=== PATIENT | male | born 1935 | race Caucasian/White ===

== ENCOUNTER → 2020-02-08 14:06 | Outpatient (BNVA) | payer MEDICARE, SELFPAY | PROVIDERS: PCP Internal Medicine; Visit Provider Urology | DX: R35.1 Nocturia (principal); N40.1 Benign prostatic hyperplasia with lower urinary tract symptoms | CPT/HCPCS: 51798; 99212 ==

== ENCOUNTER 2020-02-16 06:13 | Day surgery (SDC) | payer MEDICARE, SELFPAY ==
[2020-02-16 06:28] VITALS: BP 149/86; PULSE 84; RESP 16; TEMP 36.2; O2SAT 95; BMI 28.7
[2020-02-16] MEDS: Lactated Ringers 1,000 ML 50 ML IVCONT (06:30)
[2020-02-16] MEDS: levoFLOXacin/D5W 500 MG/100 ML PIGGYBACK 100 MG IV (06:45)
[2020-02-16] MEDS: Gentamicin Sulfate/NaCl 80 MG/100 ML PIGGYBACK 100 MG IV (07:06)
--- NOTE | 2020-02-16 07:07 | MHC.SHP ---
Pre-Procedural Eval Section A The patient is an INPATIENT: No Changes since office visit: No Cold of Flu in the past 2 weeks, No New Medical Problems, No Changes in Medication and No Patient answered all questions The History & Physical has been completed within 30 days and I have reviewed it.: Yes Section B Chief Complaint: benign prostatic hyperplasia Allergies: Allergies Allergy/AdvReac Type Severity Reaction Status Date / Time acetaminophen [Percocet] Allergy Unknown Itching Verified 02/16/20 07:00 oxycodone Allergy Unknown pruritus Verified 09/10/19 00:00 Plan Diagnosis/Plan: Unchanged I have reviewed the history and physical and performed a pertinent physical examination on my patient. No changes have occurred unless specified.
--- NOTE | 2020-02-16 07:30 | HO.ANESPROP2 ---
HPI - Anesthesia Eval Consult details Narrative: 84 M for cystoscopy [facility] Past Medical History Medical History Abdominal pain Arthritis BPH (benign prostatic hyperplasia) Depression High cholesterol HTN (hypertension) Hypothyroid Nocturia associated with benign prostatic hyperplasia Surgical History Surgical History H/O shoulder surgery History of prostate surgery Social History Social History Smoking Status: Never smoker Advance Directives: No Advance Directives Information Provided: Yes Advance Directives on File: No Recently lost weight without trying: No Meds Allergies Allergy/AdvReac Type Severity Reaction Status Date / Time acetaminophen [Percocet] Allergy Unknown Itching Verified 02/16/20 07:00 oxycodone Allergy Unknown pruritus Verified 09/10/19 00:00 Home Medications Medication Instructions Recorded Confirmed Type lisinopril 20 mg tablet 20 mg PO DAILY 02/05/20 02/16/20 History tamsulosin 0.4 mg capsule 0.4 mg PO BEDTIME 02/05/20 02/16/20 History terazosin 10 mg capsule 10 mg PO BEDTIME 02/05/20 02/16/20 History bisacodyl 5 mg tablet,delayed 10 mg PO BID 02/08/20 02/16/20 History release levothyroxine 50 mcg tablet 50 mcg PO QAM 02/08/20 02/16/20 History pravastatin 40 mg tablet 40 mg PO DAILY 02/08/20 02/16/20 History Exam Exam Date and Time: February 16, 2020 0730 Height,Weight and Vital Signs: Height 5 ft 10 in Weight 90.718 kg Last Vital Signs Temp 97.2 F 02/16/20 06:28 Pulse 84 02/16/20 06:28 Resp 16 02/16/20 06:28 BP 149/86 H 02/16/20 06:28 Pulse Ox 95 02/16/20 06:28 Airway Mallampati Class: II TM Dist: >3cm Denture: Upper and Lower Heart: PVCs Lungs: NL Other: AO Assessment and Plan Assessment Anesthesia Assessment: Anesthesia Plan Discussed Final Anesthetic Review NPO: Yes ASA Class: III Final Preanesthetic Review: No Changes in Pt Med Stat, Meds/Allgs Chart Reviewed, Consent Obtained/Reviewed and Anes Risks/Benef Reviewed Patient Risk: Intermediate Procedure Risk: Low Anesthetic Plan Anesthetic Plan: MAC: Disposition: Standard PACU
--- NOTE | 2020-02-16 07:46 | PM.OP ---
Brief Operative Note Date of Service: 02/16/20 Pre-op diagnosis: nocturia Post-op diagnosis: other (bph) Procedure: cystoscopy Surgeon: Aki Laboy III, MD Anesthesia: MAC Estimated blood loss (mL): 0 Pathology: none sent Condition: stable Disposition: same day
[2020-02-16 07:51] VITALS: BP 128/78; PULSE 84; RESP 16; TEMP 36.7; O2SAT 94
[2020-02-16 08:05] VITALS: BP 164/98; PULSE 75; RESP 18; TEMP 36.9; O2SAT 99
--- NOTE | 2020-02-16 08:18 | OP_ITS ---
SURGEON: Aki Laboy III, MD PREOPERATIVE DIAGNOSIS: POSTOPERATIVE DIAGNOSIS: BPH. PROCEDURE PERFORMED: Flexible cystoscopy. ESTIMATED BLOOD LOSS: None. COMPLICATIONS: None. ANESTHESIA: MAC. ASSISTANTS: SPECIMENS: SPECIMEN: None. DRAINS: None. DESCRIPTION OF PROCEDURE: As follows: The patient was taken to the operating room. After adequate anesthesia was obtained, it was prepped and draped in usual fashion, placed in supine position. The patient underwent time-out, demonstrating correct patient, correct procedure. Following this, the patient underwent flexible cystoscopy demonstrated the patient had apical tissue, a resected bladder neck, 3+ trabeculation. No foreign bodies. No stones. No mucosal lesions. No sediment. Both ureteral orifices seen. The patient had scope withdrawn. He tolerated procedure well. No complications. MD MIRANDA Vail III/MODL / [id number]
--- NOTE | 2020-02-16 08:40 | HO.POSTANES ---
Post Anesthesia Evaluation Post Anesthesia Evaluation Vital Signs: Vital Signs Temp Pulse Resp BP Pulse Ox 02/16/20 08:05 98.4 F 75 18 164/98 H 99 02/16/20 07:51 98.0 F 84 16 128/78 94 02/16/20 06:28 97.2 F 84 16 149/86 H 95 Anesthesia: General (tiva) Mental Status: Awake Pain Control: Satisfactory Nausea/Vomiting: None Hydration: Adequate Anesthesia-Related Issues: No Anes. Related Issues
== END 2020-02-16 08:50 | disposition home or self-care (01) ==
PROVIDERS: PCP Internal Medicine; Visit Provider Urology
PROC: 0TJB8ZZ Inspection of Bladder, Via Natural or Artificial Opening Endoscopic (ICD-10-PCS; CPT 52000; principal; 2020-02-16 07:30)
DX: N40.1 Benign prostatic hyperplasia with lower urinary tract symptoms (principal); R35.1 Nocturia; I10 Essential (primary) hypertension; Z79.899 Other long term (current) drug therapy; Z88.8 Allergy status to other drugs, medicaments and biological substances
CPT/HCPCS: 52000; J1580; J1956; J3010

== ENCOUNTER 2020-02-22 14:11 | Outpatient (REF) | payer MEDICARE, SELFPAY ==
--- NOTE | 2020-02-22 14:21 | XR_ITS ---
EXAMINATION: XR CHEST CLINICAL INFORMATION: Shortness of breath COMPARISON: Previous chest x-ray December 2016 TECHNIQUE: 2 views of the chest were obtained. FINDINGS: The cardiac and mediastinal contours are stable. The lungs are clear. There is no pleural effusion or pneumothorax. 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 Bony structures are otherwise unremarkable. XR/XR chest 2V IMPRESSION: No evidence for acute disease in the chest.
== END 2020-02-22 14:12 | disposition home or self-care (01) ==
LOC: HO.XRAY 14:11
PROVIDERS: PCP Internal Medicine; Visit Provider Physician Assistant
DX: R06.02 Shortness of breath (principal)
CPT/HCPCS: 71046

== ENCOUNTER 2020-02-23 09:59 | Outpatient (REF) | payer MEDICARE, SELFPAY ==
[2020-02-23 10:45] LABS: Hematocrit 40.8 % (42-52); Hemoglobin 13.4 g/dl (14.0-18.0); Mean Corpuscular HGB Conc 32.8 g/dl (31.0-36.0); Mean Corpuscular Hemoglobin 31.5 pg (27.0-33.0); Mean Platelet Volume 9.9 fL (9.4-12.4); Platelet Count 195 X10*3/uL (160-400); Red Blood Count 4.25 X10*6/uL (4.60-5.80); Red Cell Distribution Width 12.8 % (11.0-16.0); White Blood Count 6.2 X10*3/uL (4.8-10.8)
[2020-02-23 11:18] LABS: Alanine Aminotransferase 13 U/L (0-40); Albumin Level 4.5 g/dL (3.5-5.0); Alkaline Phosphatase 68 U/L (39-117); Anion Gap 16 (12-20); Aspartate Amino Transferase 17 U/L (5-37); Bilirubin Total 0.9 mg/dL (0.0-1.0); Blood Urea Nitrogen 15 mg/dL (9-16); Calcium 8.9 mg/dL (8.4-10.2); Carbon Dioxide 26 mmol/L (22-29); Chloride 105 mmol/L (96-108); Cholesterol 189 mg/dL; Estimated Glomerular Filt Rate 51; Glucose Fasting 118 mg/dL (60-99); HDL Cholesterol 52 mg/dL; LDL Cholesterol Calculated 111 mg/dl; Potassium 4.2 mmol/l (3.3-5.1); Sodium 143 mmol/L (135-145); Total Protein 7.5 g/dL (6.5-8.0); Triglycerides 134 mg/dL
[2020-02-23 11:40] LABS: TSH reflex Free T4 1.89 mIU/mL (0.32-4.0)
== END 2020-02-23 10:00 | disposition home or self-care (01) ==
LOC: HO.LAB 09:59
PROVIDERS: PCP Internal Medicine; Visit Provider Physician Assistant
DX: R30.0 Dysuria (principal); I10 Essential (primary) hypertension; N40.1 Benign prostatic hyperplasia with lower urinary tract symptoms; R35.1 Nocturia
CPT/HCPCS: 36415; 80053; 80061; 84443; 85027

== ENCOUNTER → 2020-02-29 08:53 | Outpatient (REF) | payer MEDICARE, SELFPAY | LOC: HO.CARD 08:53 | PROVIDERS: Visit Provider Physician Assistant | DX: Z13.89 Encounter for screening for other disorder (principal) ==

== ENCOUNTER → 2020-03-24 08:55 | Outpatient (REF) | payer MEDICARE, SELFPAY ==
--- NOTE | ~2020-03-24 | NM_ITS ---
Lexiscan Myocardial perfusion study Indication: Shortness of breath, hypertension, assess for coronary disease and ischemia Technique: The patient was brought in for a Lexiscan perfusion study on 03/24/2020 and was injected 0.4 mg of Lexiscan intravenously. Within a minute of this injection 30 mCi of sestamibi was given intravenously. Images were obtained using the SPECT gamma camera interlaced with the gating device. Images were obtained in supine position. Resting perfusion study was performed on 03/25/2020. Patient was administered 30 mCi of sestamibi intravenously at rest. Images were then obtained in supine position. Total DLP 100mGy-cm. Images were processed with the software and compared side to side in short axis, horizontal long axis and vertical long axis views. Findings: Raw acquisition was reviewed. The stress perfusion study showed diminished tracer uptake along the inferior wall. With CT attenuation correction, this improves significantly suggestive of diaphragmatic attenuation artifact. The gated study shows normal LV systolic function with calculated LVEF of 73%. LV cavity is normal in size. The gated study shows normal wall thickening and contraction of segments. Resting study shows diminished tracer uptake along the inferior wall that improves with CT attenuation correction suggesting diaphragmatic artifact. Gating at rest reveals normal wall motion with ejection fraction at 74%. The findings are consistent with no reversible or fixed perfusion abnormality. NM/AK cardiolite stress test Impression: 1. Myocardial perfusion imaging study shows normal myocardial perfusion. No evidence of any ischemia or infarction. 2. Gated LVEF is 73% during stress and 74% during rest. 3. Transient ischemic dilatation not present. EKG component of the test reported separately.
--- NOTE | 2020-03-24 09:00 | CA_ITS ---
Acquisition Time: 2020-03-24 10:05:17 Total Exercise Time: 00:02:00 Test Indications: Chest Pain Medications: LEVOTHYROXINE LISINOPRIL PRAVASTATIN TAMSULOSIN TRAZOSIN Protocol: LEXISCAN Max HR: 114 BPM 82% of Pred: 138 BPM Max BP: 132/082 mmHG Max Work Load: 1.0 METS Pharmacological stress test with Lexiscan injection, while sitting and kicking his legs, without anginal symptoms, with isolated PVCs, with normotensive response to injection, with nondiagnostic EKG for ischemia. Nuclear images pending. Test reviewed with Dr Bernal. Referred By: Reynaldo Ken Overread By: DANIELLE ARMSTRONG
== END ==
LOC: HO.CARD 08:55
PROVIDERS: Visit Provider Physician Assistant
DX: R06.02 Shortness of breath (principal)
CPT/HCPCS: 78452; 93017; A9500; J0280; J2785

== ENCOUNTER 2020-04-18 08:50 | Outpatient (REF) | payer MEDICARE, SELFPAY | END 2020-04-18 08:51 | disposition home or self-care (01) | LOC: HO.HAP 08:50 | PROVIDERS: Visit Provider Physician Assistant | DX: Z13.89 Encounter for screening for other disorder (principal) ==

== ENCOUNTER 2020-04-27 11:58 | Outpatient (REF) | payer MEDICARE, SELFPAY ==
--- NOTE | ~2020-04-27 | XR_ITS ---
EXAMINATION: XR ABDOMEN WITH DECUBITUS VIEWS CLINICAL INDICATION: K59.00 - Constipation, unspecified COMPARISON: CT abdomen and pelvis 04/29/2019 TECHNIQUE: 3 views of the abdomen are obtained. FINDINGS: There is scattered gas in the bowel of normal caliber. There is no gaseous dilatation of bowel or abnormal collections of gas. There is some mild to moderate stool ascending and sigmoid colon. No excessive amount or rectal fecal impaction. There are surgical clips right upper quadrant consistent with the prior cholecystectomy. Calcifications tortuous splenic artery again seen. There are degenerative changes lumbar spine with curvature, disc narrowing, endplate sclerosis, greatest at L2-L3 and L4-L5. XR/XR abdomen w decubitus IMPRESSION: 1. Moderate stool left colon. No excessive amount of stool or proximal obstruction. 2. Prominent degenerative disc changes mid to lower lumbar spine.
[2020-04-27 12:28] LABS: MANUAL DIFF FLAG NO
[2020-04-27 12:35] LABS: Basophils Percent Auto 0.5 % (0-2); Eosinophils Absolute Auto 0.3 X10*3/uL (0.0-0.4); Eosinophils Percent Auto 4.6 % (0-4); Hemoglobin 13.3 g/dl (14.0-18.0); Imm Gran Abs Auto 0.01 X10*3/uL (0.00-0.03); Imm Gran Pct Auto 0.2 % (0.0-0.4); Lymphocytes Percent Auto 32.5 % (20-40); Mean Corpuscular HGB Conc 33.3 g/dl (31.0-36.0); Mean Corpuscular Hemoglobin 31.9 pg (27.0-33.0); Mean Corpuscular Volume 95.9 fL (80-98); Mean Platelet Volume 9.9 fL (9.4-12.4); Monocytes Absolute Auto 0.6 X10*3/uL (0.1-1.2); Monocytes Percent Auto 9.3 % (2-11); Neutrophils Absolute Auto 3.2 X10*3/uL (2.0-8.3); Neutrophils Percent Auto 52.9 % (45-73); Platelet Count 191 X10*3/uL (160-400); Red Blood Count 4.17 X10*6/uL (4.60-5.80)
[2020-04-27 13:03] LABS: Alanine Aminotransferase 15 U/L (0-40); Albumin Level 4.4 g/dL (3.5-5.0); Alkaline Phosphatase 69 U/L (39-117); Anion Gap 11 (12-20); Aspartate Amino Transferase 17 U/L (5-37); Bilirubin Total 0.5 mg/dL (0.0-1.0); Blood Urea Nitrogen 18 mg/dL (9-16); Calcium 9.1 mg/dL (8.4-10.2); Carbon Dioxide 29 mmol/L (22-29); Chloride 105 mmol/L (96-108); Estimated Glomerular Filt Rate 51; Glucose Fasting 152 mg/dL (60-99); Potassium 4.3 mmol/L (3.3-5.1); Sodium 141 mmol/L (135-145); Total Protein 7.3 g/dL (6.5-8.0)
== END 2020-04-27 11:59 | disposition home or self-care (01) ==
LOC: HO.LAB 11:58
PROVIDERS: PCP Internal Medicine; Visit Provider Nurse Practitioner Family
DX: K59.00 Constipation, unspecified (principal); R10.9 Unspecified abdominal pain; R10.32 Left lower quadrant pain
CPT/HCPCS: 36415; 74021; 80053; 85025

== ENCOUNTER 2020-07-25 12:18 | Outpatient (REF) | payer MEDICARE, SELFPAY ==
--- NOTE | 2020-07-26 07:41 | MHC.AU.HAS ---
Hearing Aid Evaluation Date of Visit: 07/25/20 Shut Off Worker Used: Maori- In Person Historical Information: Description of Hearing: Moderate to severe sensorineural hearing loss bilaterally Current personal amplification information, if applicable: None Summary: Rajendra was last seen at this office on 04/18/20 scheduled for a pure tone check and Hearing Aid Evaluation. He was experiencing active bleeding and decreased hearing in the right ear. Audiologic testing was not performed and he was referred to [facility]. He arrives today for a Hearing Aid Evaluation following treatment by the ENT. Rajendra did not bring any paperwork from the ENT so I will contact the office to fax report, audiologic evaluation, and medical clearance. Rajendra reports he is having even more difficulty hearing since the last hearing test performed at this office of 10/23/2019. He will be leaving for [place] next month, and because of his increased hearing loss he is experiencing significant communication difficulties. Binaural hearing aids are medically necessary to facilitate communication. Discussed appropriate styles of hearing aids and patient wants in-the-ear style. Otoscopy shows clear ear canals for both ears with no sign of infection or bleeding. Able to take impressions of both ears without complication. Sending prior authorization to [facility] when all paperwork from ENT is received. When authorization is received will order aids and schedule HAF. Patient is leaving for [place] on 09/03/2020 Hearing Aid Prescription: Based on the individual?s shared listening needs, communication environments, dexterity, desire for connectivity, and personal preferences, the following prescription for amplification has been made: Right ear: Dye Colorist Formulator: Phonak Model: Virto M - 312 Battery Size: 312 Color: Venegas Left ear: Left ear prescription to be same as Right Hearing Aid above: Dye Colorist Formulator: Phonak Model: Virto M - 312 Battery Size: 312 Color: Venegas Plan of Care: Patient wishes to pursue hearing aids as prescribed Action Taken/Action Needed: Earmold Impressions Taken Prior authorization to be requested Medical Clearance to be requested from PCP/ENT Hearing Fitting to be scheduled when materials arrive Primary Diagnosis: H90.3 Bilateral Sensorineural Hearing Loss Signature: Provider: Lauren Farley, CCC-A
--- NOTE | 2020-07-26 12:57 | MHC.AU.HFU ---
Hearing Instrument Follow-Up- Binaural Date of Visit: 07/26/20 Oil Sprayer Used: Not Applicable Follow-Up Summary: Contacted [facility] who reported patient had cancelled his April 2020 appointment so he was never seen for treatment or audiologic re-evaluation. Contacted patient who reports he had seen the PCP and treated with ear drops. Then contacted [facility] and spoke with Shiraz in Clinical review to discuss audiologic evaluation is greater than 6 months. Shiraz reported the date of the audiologic evaluation and medical clearance is not necessary, only the hearing aid must be below $500.00. Technically, prior authorization does not have to be submitted, but will do so anyway and fax medical clearance to PCP to have in chart. Recommendations: Recommendations: Patient will be contacted when materials have arrived. A prior authorization will be submitted to patient's insurance. Diagnosis Code(s): Primary Diagnosis: H90.3 Bilateral Sensorineural Hearing Loss Signature: Provider: Lauren Farley, ORACIO-A
--- NOTE | 2020-07-26 13:54 | MHC.AU.MED ---
Medical Clearance for Hearing Instrumentation Date: 07/26/20 Patient Name: Rajendra Negrete Date of : 1935 Primary Care Provider: Referring Provider: Erika Pritchett MD We have seen your patient on 07/26/20 and have determined that they are a candidate for amplification (See accompanying report). Specifically, they would benefit from: Hearing aid use in both ears There is a statute that addresses Medical Evaluation Requirements prior to fitting a patient with a hearing aid. According to [place] statute 265 CMR:6.03(1), (a) General. Except as provided in 265 CMR 6.03(1)(b), a hearing therapy director shall not sell a hearing aid unless the prospective user has presented to the hearing therapy director a written statement signed by a licensed physician that states that the patient's hearing loss has been medically evaluated and the patient may be considered a candidate for a hearing aid. The medical evaluation must have taken place within the preceding six months. Please note: Due to the [place] Statute referenced above, we cannot accept a signature other than that of a licensed physician. BACON SLICER and PA signatures cannot be accepted. I am in agreement with the above recommendation. There is no medical contraindication for hearing instrumentation. Physician Signature Date Physician Name (Printed)
== END 2020-07-25 12:19 | disposition home or self-care (01) ==
LOC: HO.HAP 12:18
PROVIDERS: Visit Provider Internal Medicine
DX: Z46.1 Encounter for fitting and adjustment of hearing aid (principal); H90.3 Sensorineural hearing loss, bilateral
CPT/HCPCS: 92591; V5275

== ENCOUNTER 2020-07-28 14:37 | Outpatient (REF) | payer MEDICARE, SELFPAY ==
--- NOTE | ~2020-07-28 | US_ITS ---
EXAMINATION: US THYROID CLINICAL INFORMATION: Iodine-deficiency related diffuse (endemic) goiter. COMPARISON: None TECHNIQUE: Linear transducer grayscale and color Doppler examination with attention to the region of the thyroid. FINDINGS: SIZE: Measurements of the thyroid lobes and nodules are given in sagittal, anteroposterior and transverse dimensions respectively. Right Thyroid Lobe: 2.9 x 1.1 x 1.0 cm, volume 1.7 mL. Parenchyma: The gland echotexture is homogeneous. Thyroid vascularity is normal. Left Thyroid Lobe: 2.2 x 0.9 x 1.0 cm, volume 1.1 mL. Parenchyma: The gland echotexture is homogeneous. Thyroid vascularity is normal. Isthmus: 0.2 cm in maximum AP dimension. Estimated total number of nodules greater than or equal to 1 cm: 0. Occupational Therapy Director nodules are described as follows: 1. Location: Right lower pole. Size: 0.2 x 0.2 x 0.2 cm, volume 0.04 mL. Nodule characteristics: Composition: Cystic(0). ACR TI-RADS total points: 0 ACR TI-RADS category: 1 NODES: No lymphadenopathy is seen in the tissue surrounding the thyroid gland. US/US thyroid IMPRESSION: No suspicious thyroid nodules identified. No further follow-up. ACR TI-RADS RECOMMENDATION REFERENCE: Ultrasound-guided fine-needle aspiration, followup ultrasound, no further follow up. * TR1 (0 point) and TR 2 (2 points): No FNA or follow up * TR3 (3 points): FNA if more than or equal to 2.5 cm in maximum dimension, followup ultrasound in 1, 3 and 5 years if 1.5 to 2.4 cm in maximum dimension. * TR4 (4-6 points): FNA if more than or equal to 1.5 cm in maximum dimension, followup ultrasound in 1, 2, 3 and 5 years if 1 to 1.4 cm in maximum dimension. * TR5 (more than or equal to 7 points): FNA if more than or equal to 1 cm in maximum dimension, followup ultrasound every year for 5 years if 0.5 to 0.9 cm in maximum dimension. * TR3, TR4 or TR5 nodules that are below the size threshold for follow up receive no follow up.
== END 2020-07-28 14:38 | disposition home or self-care (01) ==
LOC: HO.US 14:37
PROVIDERS: Visit Provider Physician Assistant
DX: E01.0 Iodine-deficiency related diffuse (endemic) goiter (principal)
CPT/HCPCS: 76536

== ENCOUNTER 2020-08-30 09:46 | Outpatient (REF) | payer MEDICARE, SELFPAY ==
--- NOTE | 2020-08-30 11:59 | MHC.AU.ANO ---
Adult Audiological Evaluation Date of Visit: 08/30/20 Labor Relations Or Personnel Negotiator Used: NO, patient familiar with the hearing test process Reason for Appointment: Audiologic re-evaluation prior to fitting hearing aids. Does patient feel they have a hearing loss?: Yes If Yes, Which Ear?: Both Ears Has hearing been tested previously?: Yes Previous Hearing Test Results: 10/23/2019 [facility] Moderate to severe sensorineural hearing loss bilaterally Ear History: Recent Ear Drainage: Right ear bleeding when seen in April 2020, treated by PCP Medical History: Medical History: Memory difficulties and high cholesterol Medication List: Not available Otoscopy: Right Ear: Unremarkable Left Ear: Unremarkable Tympanometry: Tympanometry not performed at today's visit as previous testing has indicated normal middle ear function bilaterally Otoacoustic Emissions Not performed at today's visit. Hearing Evaluation: Transducer(s) Used: Insert Earphones Bone Conduction Method: Conventional Audiometry Stimuli Used: Pure Tones Right Ear: Description of Hearing: Moderate to severe sensorineural hearing loss Left Ear: Description of Hearing: Moderate to severe sensorineural hearing loss Speech Recognition Threshold (SRT): Method Used: Monitored Live Voice Stimuli Used: Somali Trisyllable words Right Ear: 65 dB HL Left Ear: 60 dB HL Word Discrimination: Method: Monitored Live Voice Word Lists Used: Lista Bisil?bica (Somali) Right Ear: 84% at 95 dB HL Left Ear: 88% at 90 dB HL Comparison: Compared to most recent evaluation: Overall thresholds have decreased 5-10 dB compared to October 2019 Recommendations: Was fit with binaural hearing aids following today's hearing test. Audiological re-evaluation in one year. Diagnosis: Primary Diagnosis: H90.3 Bilateral Sensorineural Hearing Loss Services Performed: Comprehensive Audiological Evaluation (CPT 72955) Signature: Provider: Lauren Farley, [facility]
== END 2020-08-30 09:47 | disposition home or self-care (01) ==
LOC: HO.SH 09:46
PROVIDERS: Visit Provider Internal Medicine
DX: H90.3 Sensorineural hearing loss, bilateral (principal)
CPT/HCPCS: 92557

== ENCOUNTER 2020-08-30 11:21 | Outpatient (REF) | payer MEDICARE, SELFPAY | END 2020-08-30 11:22 | disposition home or self-care (01) | LOC: HO.HAP 11:21 | PROVIDERS: Visit Provider Internal Medicine | DX: Z46.1 Encounter for fitting and adjustment of hearing aid (principal); H90.3 Sensorineural hearing loss, bilateral | CPT/HCPCS: 92595; V5011; V5020; V5160; V5259; V5266 ==